=== PATIENT | female | born 1955 | race Two or more races ===

== ENCOUNTER 2019-04-09 13:17 | Emergency (ER) | payer OTHER ==
[2019-04-09] MEDS ORDERED: Cyclobenzaprine 10 MG Tab PO ONE (14:36)
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
--- NOTE | 2019-04-09 15:22 | CR ---
EXAM DATE: 04/09/19 PATIENT'S AGE: 63 Lumbar spine: AP, lateral and coned down lateral view centered to the lumbosacral junction were obtained. Comparison: No previous study. Minimal disc space narrowing is noted at L4-L5. Other disc spaces are preserved. Vertebral body heights are maintained. Minimal scattered endplate osteophytes are seen. Pedicles as well as visualized transverse and spinous processes are intact. No subluxation or fracture is seen. Sacroiliac joints are normal. Impression: 1. Minimal disc space narrowing at L4-L5. 2. Three-view lumbar spine study is otherwise unremarkable. Diagnostic code #2 Report Signed by Proxy. HEMA
--- NOTE | 2019-04-09 15:41 | CR ---
EXAM DATE: 04/09/19 PATIENT'S AGE: 63 Thoracic spine: AP, lateral and swimmer's views of the thoracic spine was obtained. Comparison: No previous study. Moderate disc space narrowing is noted at C4-C5. Disc spaces within the thoracic spine are fairly well-preserved. Minimal endplate osteophytes are noted within the upper thoracic spine. Vertebral body heights are maintained. Minimal scoliosis is noted. Pedicles are intact. No subluxation or fracture is seen. Impression: 1. Slight degenerative change and mild scoliosis. 2. Three view thoracic spine study is otherwise unremarkable. Diagnostic code #2 Report Signed by Proxy. [facility]
== END 2019-04-09 16:00 | disposition home or self-care (01) ==
LOC: MW.ED 13:17
DX: M54.5 Low back pain (principal); Z90.710 Acquired absence of both cervix and uterus; V89.2XXA Person injured in unspecified motor-vehicle accident, traffic, initial encounter
CPT/HCPCS: 72072; 72100; 81003; 99283; A9270

== ENCOUNTER 2021-12-26 06:35 | Day surgery (SDC) | payer BC ==
[~2021-12-26 06:35] MED LIST: Lactated Ringers 1,000 ML IV SCH
[2021-12-26] MEDS ORDERED: Propofol 200 MG/20 ML SDV ONE ×2 (07:45→08:20)
[2021-12-26] MEDS ORDERED: fentaNYL 100 MCG/2 ML SDV ONE (07:45)
[2021-12-26] MEDS ORDERED: Lactated Ringers 1,000 ML IV SCH (08:45)
== END 2021-12-26 09:27 | disposition home or self-care (01) ==
LOC: MW.SDS 06:35
PROVIDERS: ATTEND Surgery
DX: Z12.11 Encounter for screening for malignant neoplasm of colon (principal); I10 Essential (primary) hypertension; J45.909 Unspecified asthma, uncomplicated; Z79.899 Other long term (current) drug therapy; Z90.710 Acquired absence of both cervix and uterus; Z98.890 Other specified postprocedural states; Z78.9 Other specified health status; Z79.4 Long term (current) use of insulin
CPT/HCPCS: 45378; J2704; J3010; J7120; 00812

== ENCOUNTER 2024-08-23 13:59 | Emergency (ER) | payer MEDICARE ==
[2024-08-23 14:39] LABS: BASOPHILS ABSOLUTE AUTO 0.05 K/uL (0.00-0.20); BASOPHILS PERCENT AUTO 0.6 % (0.0-1.0); EOSINOPHILS PERCENT AUTO 1.2 % (0.0-6.0); HEMATOCRIT 35.6 % (37.0-47.0); HEMOGLOBIN 12.9 g/dL (12.0-16.0); IMMATURE GRAN ABSOLUTE AUTO 0.02 K/uL (0.00-0.05); IMMATURE GRAN PERCENT AUTO 0.2 % (0.0-0.4); LYMPHOCYTES ABSOLUTE AUTO 1.21 K/uL (1.00-4.80); LYMPHOCYTES PERCENT AUTO 14.8 % (24.0-44.0); MEAN CORPUSCULAR HEMOGLOBIN 28.3 pg (28.0-32.0); MEAN CORPUSCULAR HGB CONC 36.2 g/dL (32.0-36.0); MEAN CORPUSCULAR VOLUME 78.1 fL (83.0-99.0); MEAN PLATELET VOLUME 11.9 fL (9.4-12.3); MONOCYTES ABSOLUTE AUTO 0.51 K/uL (0.00-0.80); MONOCYTES PERCENT AUTO 6.2 % (0.0-8.0); NEUTROPHILS ABSOLUTE AUTO 6.31 K/uL (1.80-7.70); PLATELET COUNT,PLT 236 K/uL (150-400); RED BLOOD CELL COUNT 4.56 M/uL (4.10-5.30)
[2024-08-23 14:52] LABS: A/G RATIO 1.2 (0.9-1.6); ALBUMIN 4.2 g/dL (3.4-5.0); BILIRUBIN TOTAL 0.6 mg/dL (0.2-1.0); CALCIUM 9.5 mg/dL (8.5-10.1); CARBON DIOXIDE,CO2 29.8 mmol/L (21.0-32.0); CREATININE 0.6 mg/dL (0.6-1.0); EST CRCL DRUG DOSING (CG) 69.6 mL/min; POTASSIUM,K 4.2 mmol/L (3.5-5.1); PROTEIN TOTAL,TP 7.8 g/dL (6.4-8.2)
[2024-08-23] MEDS: Sodium Chloride 0.9% 1,000 ML IV STA (15:11)
[2024-08-23] MEDS: Ondansetron 4 MG/2 ML SDV IVPUSH STA (15:11)
[2024-08-23] MEDS: Meclizine 25 MG Tab PO STA (15:11)
[2024-08-23 15:22] LABS: BILIRUBIN,URINE NEGATIVE (NEGATIVE); COLOR,URINE YELLOW; GLUCOSE,URINE NEGATIVE (NEGATIVE); KETONES,URINE NEGATIVE (NEGATIVE); LEUKOCYTE ESTERASE,URINE NEGATIVE (NEGATIVE); NITRITE,URINE NEGATIVE (NEGATIVE); OCCULT BLOOD,URINE NEGATIVE (NEGATIVE); PH,URINE 8.5 (5.0-8.0); PROTEIN,URINE NEGATIVE (NEGATIVE); UROBILINOGEN,URINE 0.2 EU/dL (<2.0)
[2024-08-23 15:24] LABS: APPEARANCE,URINE HAZY
== END 2024-08-23 16:24 | disposition home or self-care (01) ==
LOC: MW.ED 13:59
DX: R42 Dizziness and giddiness (principal); Z75.3 Unavailability and inaccessibility of health-care facilities; Z90.710 Acquired absence of both cervix and uterus; Z79.899 Other long term (current) drug therapy
CPT/HCPCS: 36415; 80053; 81003; 85025; 93005; 96361; 96374; 99284; A9270; J2405; J7030; 93010